=== PATIENT | male | born 1990 | race Caucasian/White ===

== ENCOUNTER 2022-07-29 19:00 | Inpatient (IN) | payer OTHER, SELFPAY ==
--- NOTE | ~2022-07-29 | CT_ITS ---
EXAMINATION: CT HEAD WITHOUT CONTRAST CLINICAL INFORMATION: New onset psychosis COMPARISON: None TECHNIQUE: Contiguous axial imaging was performed from the skull base to vertex without intravenous administration of contrast. This CT examination was performed using dose optimization techniques as appropriate, variously including the following: *Automated exposure control *Adjustment of mA and/or kV according to patient size (this includes techniques or standardized protocols for targeted exams where dose is matched to indication/reason for exam; i.e. extremities or head) *Use of iterative reconstruction technique DLP: 812 mGy-cm FINDINGS: There is no acute intra-axial, extra-axial bleed, masses or midline shift. There is no acute infarction in evolution. The lateral ventricles are symmetrical in size and configuration. The black to white matter differentiation is maintained normal. Bone windows reveal no calvarial abnormality. Bilateral paranasal sinuses and mastoid air cells are well-aerated. There is no scalp soft tissue abnormality. CT/CT head/brain wo IV con IMPRESSION: No acute intracranial process seen.
[2022-07-29 19:12] VITALS: BP 148/97; PULSE 110; RESP 18; TEMP 37; O2SAT 94; BMI 22.8
--- NOTE | 2022-07-29 19:29 | ED_ITS ---
HPI - Psych General Chief Complaint: Psychiatric Symptoms Stated Complaint: CRISIS, SECTION 12 Time Seen by Provider: 07/29/22 19:11 Source: patient and EMS Mode of arrival: EMS Limitations: no limitations History of Present Illness HPI Narrative: This is a 31-year-old male no known medical history presenting to the emergency department with complaints of paranoia, anxiety. Patient tells me he thinks he is schizophrenic and he needs an evaluation. Patient reports hearing auditory hallucinations throughout the day, voices are talking about life stressors in issues. He tells me sometimes he has visual hallucinations however very seldomly. Denies tactile hallucinations. Patient denies drugs, alcohol and t obacco. Denies suicidal and homicidal ideation. Currently not taking any medications. He denies any medical complaints. Patient is not followed by a psychiatrist or therapist and he has no known psychiatric diagnoses. He tells me his mother was concerned about him so she called 911. He was evaluated in the community by the behavioral health team is currently in inpatient bed search. Related Data Allergies Allergy/AdvReac Type Severity Reaction Status Date / Time No Known Allergies Allergy Unverified 07/09/20 17:10 [No Known Allergies*] Review of Systems Review of Systems: Constitutional : No Weight loss, No Fever, No Chills, No Fatigue, No Malaise ENT/Mouth : No sore throat, No Rhinorrhea Eyes: No Eye Pain, No Swelling, No Redness Cardiovascular : No Chest Pain, No SOB, No Dyspnea on Exertion, No Orthopnea, No Edema, No Palpitations Respiratory : No Cough, No Sputum, No Wheezing Gastrointestinal : No Nausea, No Vomiting, No Diarrhea, No Constipation, No abdominal Pain, No Hematochezia, No Melena Genitourinary : No Dysuria, No Urinary Frequency, No Hematuria, Musculoskeletal : No joint pain, No Myalgias, No Joint Swelling Skin : No Skin Lesions, No rash Neuro : No Weakness, No Numbness, No Dizziness, No Headache Psych : + Anxiety/Panic, No Depression, + paranoia, No HI/HI All other systems reviewed and are negative Yes all other systems are reviewed and are negative [facility] Past Medical History Attestation statement: The following information was validated with the patient. Source: old records reviewed and nursing notes reviewed Social History Social History Advance Directives: No Advance Directives Information Provided: Yes Physical Exam Vital Signs: Vital Signs: Last Vital Signs Temp 98.6 F 07/29/22 19:12 Pulse 110 H 07/29/22 19:12 Resp 18 07/29/22 19:12 BP 148/97 H 07/29/22 19:12 Pulse Ox 94 07/29/22 19:12 O2 Del Method 07/29/22 19:12 BMI result Body Mass Index 22.8 vss Appearance: Alert.? Oriented X3.? No acute distress.? Patient appears paranoid, and anxious upon my examination. Head: Normocephalic, atraumatic, no step-offs or deformities Eyes: Pupils equal, round and reactive to light.? CVS: Normal heart rate and rhythm.? Pulses normal.? Respiratory: No respiratory distress.? Breath sounds normal.? Abdomen: Soft and nontender.? Skin: Skin warm and dry.? Normal skin color.? Normal skin turgor.? Extremities: No lower extremity edema.? No calf ttp. 5/5 strength to bilateral upper and lower extremities Neuro: Oriented X 3.? No motor deficit.? No sensory deficit. CN 2-12 intact Course Reevaluation(s) Reevaluation #1: Patient with slight leukocytosis 14.5 however no medical complaints, no upper respiratory symptoms. Chemistry with elevated anion gap slightly, patient tolerating p.o. fluids, will hydrate. Covid negative. Time: 20:48 Reevaluation #2: Repeat CMP with no anion gap. Ethanol negative toxicology negative. At this time patient will be placed in physician observation to allow more time to be placed in an inpatient psychiatric setting. At time observation was started patient common cooperative no acute distress will continue to monitor. Time: 22:34 MDM - Psych MDM Narrative Medical decision making narrative: 193 31-year-old male presents for evaluation for paranoia, evaluated by Behavioral Health in the community currently an inpatient bed search. No known psychiatric diagnoses. Physical examination benign however, patient noted to be anxious/paranoid upon exam. Likely schizophrenia versus bipolar disorder and paranoia. Will rule out metabolic causes. Plan medical clearance and evaluation by the behavioral health team. Medical Records Attestation: I reviewed the patient's medical records. Lab Data Attestation: I reviewed the patient's lab results. Result diagrams: 07/29/22 19:26 07/29/22 21:52 Labs: Lab Results 07/29/22 07/29/22 07/29/22 Range/Units 19:20 19:26 19:26 WBC 14.5 H (4.8-10.8) X10*3/uL RBC 4.89 (4.60-5.80) X10*6/uL Hgb 15.2 (14.0-18.0) g/dl Hct 43.2 (42.0-52.0) % MCV 88.3 (80.0-98.0) fL MCH 31.1 (27.0-33.0) pg MCHC 35.2 (31.0-36.0) g/dl RDW 11.7 (11.0-16.0) % Plt Count 235 (160-400) X10*3/uL MPV 9.6 (9.4-12.4) fL Immature Gran % (Auto) 0.3 (0.0-0.4) % Neut % (Auto) 78.9 H (45-73) % Lymph % (Auto) 10.4 L (20-40) % [place] % (Auto) 10.2 (2-11) % Eos % (Auto) 0.0 (0-4) % Baso % (Auto) 0.2 (0-2) % Lymph # (Auto) 1.5 (1.2-4.9) X10*3/uL [place] # (Auto) 1.5 H (0.1-1.2) X10*3/uL Eos # (Auto) 0.0 (0.0-0.4) X10*3/uL Baso # (Auto) 0.0 (0.0-0.2) X10*3/uL Abs Immat Gran (auto) 0.05 H (0.00-0.03) X10*3/uL Absolute Neuts (auto) 11.4 H (2.0-8.3) x10*3/uL Absolute Nucleated RBC 0.000 (0.0-0.012) X10*3/uL Nucleated RBC % (auto) 0.0 (0.0-0.2) /100WBC Sodium 144 (135-145) mmol/L Potassium 4.0 (3.3-5.1) mmol/L Chloride 104 (96-108) mmol/L Carbon Dioxide 22 (22-29) mmol/L Anion Gap 22 H (12-20) BUN 18 H (9-16) mg/dL Creatinine 1.19 (0.5-1.4) mg/dL Estim Creat Clear Calc 87.3 Estimated GFR > 60 Random Glucose 104 (60-115) mg/dL Calcium 10.1 (8.4-10.2) mg/dL Total Bilirubin 0.8 (0.0-1.0) mg/dL AST 41 H (5-37) U/L ALT 20 (0-40) U/L Alkaline Phosphatase 62 (39-117) U/L Total Protein 8.0 (6.5-8.0) g/dL Albumin 5.5 H (3.5-5.0) g/dL Salicylates (15-30) mg/dL Acetaminophen (<30) mcg/mL Ethyl Alcohol mg/dL COVID-19 (ESE) Negative (Negative) COVID-19 Clin Com See Note 07/29/22 07/29/22 Range/Units 19:26 21:52 WBC (4.8-10.8) X10*3/uL RBC (4.60-5.80) X10*6/uL Hgb (14.0-18.0) g/dl Hct (42.0-52.0) % MCV (80.0-98.0) fL MCH (27.0-33.0) pg MCHC (31.0-36.0) g/dl RDW (11.0-16.0) % Plt Count (160-400) X10*3/uL MPV (9.4-12.4) fL Immature Gran % (Auto) (0.0-0.4) % Neut % (Auto) (45-73) % Lymph % (Auto) (20-40) % [place] % (Auto) (2-11) % Eos % (Auto) (0-4) % Baso % (Auto) (0-2) % Lymph # (Auto) (1.2-4.9) X10*3/uL [place] # (Auto) (0.1-1.2) X10*3/uL Eos # (Auto) (0.0-0.4) X10*3/uL Baso # (Auto) (0.0-0.2) X10*3/uL Abs Immat Gran (auto) (0.00-0.03) X10*3/uL Absolute Neuts (auto) (2.0-8.3) x10*3/uL Absolute Nucleated RBC (0.0-0.012) X10*3/uL Nucleated RBC % (auto) (0.0-0.2) /100WBC Sodium 141 (135-145) mmol/L Potassium 4.0 (3.3-5.1) mmol/L Chloride 103 (96-108) mmol/L Carbon Dioxide 23 (22-29) mmol/L Anion Gap 19 (12-20) BUN 17 H (9-16) mg/dL Creatinine 1.04 (0.5-1.4) mg/dL Estim Creat Clear Calc 99.9 Estimated GFR > 60 Random Glucose 95 (60-115) mg/dL Calcium 9.7 (8.4-10.2) mg/dL Total Bilirubin 0.8 (0.0-1.0) mg/dL AST 39 H (5-37) U/L ALT 20 (0-40) U/L Alkaline Phosphatase 59 (39-117) U/L Total Protein 7.9 (6.5-8.0) g/dL Albumin 5.3 H (3.5-5.0) g/dL Salicylates 8.1 L (15-30) mg/dL Acetaminophen < 1 (<30) mcg/mL Ethyl Alcohol < 10 mg/dL COVID-19 (ESE) (Negative) COVID-19 Clin Com Critical Care Time Critical Care Time Critical Care Time: No Discharge Plan Discharge Clinical Impression: Acute anxiety, Acute paranoia Patient Disposition: Still a Patient
[2022-07-29 19:30] LABS: MANUAL DIFF FLAG NO
[2022-07-29 19:32] LABS: Basophils Percent Auto 0.2 % (0-2); Hematocrit 43.2 % (42.0-52.0); Hemoglobin 15.2 g/dl (14.0-18.0); Imm Gran Abs Auto 0.05 X10*3/uL (0.00-0.03); Imm Gran Pct Auto 0.3 % (0.0-0.4); Lymphocytes Absolute Auto 1.5 X10*3/uL (1.2-4.9); Lymphocytes Percent Auto 10.4 % (20-40); Mean Corpuscular HGB Conc 35.2 g/dl (31.0-36.0); Mean Corpuscular Hemoglobin 31.1 pg (27.0-33.0); Mean Corpuscular Volume 88.3 fL (80.0-98.0); Mean Platelet Volume 9.6 fL (9.4-12.4); Monocytes Absolute Auto 1.5 X10*3/uL (0.1-1.2); Monocytes Percent Auto 10.2 % (2-11); Neutrophils Absolute Auto 11.4 x10*3/uL (2.0-8.3); Neutrophils Percent Auto 78.9 % (45-73); Platelet Count 235 X10*3/uL (160-400); Red Blood Count 4.89 X10*6/uL (4.60-5.80); Red Cell Distribution Width 11.7 % (11.0-16.0); White Blood Count 14.5 X10*3/uL (4.8-10.8)
[2022-07-29 19:41] LABS: COVID-19 Test Negative (Negative); IDNOW Serial# 55D5AD1C
[2022-07-29 20:00] LABS: Alanine Aminotransferase 20 U/L (0-40); Albumin Level 5.5 g/dL (3.5-5.0); Alkaline Phosphatase 62 U/L (39-117); Anion Gap 22 (12-20); Aspartate Amino Transferase 41 U/L (5-37); Bilirubin Total 0.8 mg/dL (0.0-1.0); Blood Urea Nitrogen 18 mg/dL (9-16); Calcium 10.1 mg/dL (8.4-10.2); Carbon Dioxide 22 mmol/L (22-29); Chloride 104 mmol/L (96-108); Creatinine Clr Calc Pharmacy 87.3; Estimated Glomerular Filt Rate > 60; Ethanol < 10 mg/dL; Glucose Random 104 mg/dL (60-115); Salicylate 8.1 mg/dL (15-30); Sodium 144 mmol/L (135-145)
[2022-07-29 20:18] LABS: Acetaminophen LAB < 1 mcg/mL (<30)
[2022-07-29 22:17] LABS: Alanine Aminotransferase 20 U/L (0-40); Albumin Level 5.3 g/dL (3.5-5.0); Alkaline Phosphatase 59 U/L (39-117); Anion Gap 19 (12-20); Aspartate Amino Transferase 39 U/L (5-37); Bilirubin Total 0.8 mg/dL (0.0-1.0); Blood Urea Nitrogen 17 mg/dL (9-16); Calcium 9.7 mg/dL (8.4-10.2); Carbon Dioxide 23 mmol/L (22-29); Chloride 103 mmol/L (96-108); Creatinine Clr Calc Pharmacy 99.9; Estimated Glomerular Filt Rate > 60; Glucose Random 95 mg/dL (60-115); Sodium 141 mmol/L (135-145); Total Protein 7.9 g/dL (6.5-8.0)
[2022-07-29 23:56] VITALS: BP 135/82; PULSE 103; RESP 17; TEMP 37.4; O2SAT 98
--- NOTE | 2022-07-30 06:27 | PC.NURSE ---
Patient slept through the night, no distress observed/reported, patient struggled to fall sleep, patient was assessed by Sharon in the community with disposition section 12 inpatient bed search, patient behavior non concerning at this time however thought content paranoid, thought process tangential, med rec completed/currently not on any medication, VSS, pending urine sample, will continue to monitor.
--- NOTE | 2022-07-30 07:19 | PC.NURSE ---
patient appears to remain asleep at present respirations are even and unlabored patient appears in no distress
[2022-07-30 08:11] LABS: Appearance Urine Clear; Color Urine Yellow; Glucose Urine UA 250 mg/dL (Negative); Leukocyte Esterase Urine Negative (Negative); Nitrite Urine Negative (Negative); PH 5.5 (5.0-9.0); Urine Blood Negative (Negative); Urine Ketones 15 mg/dL (Negative); Urine Protein Negative (Neg-Trace)
[2022-07-30 08:26] LABS: Amphetamine Screen Urine Not Detected (Not Detect); Barbiturates, Urine Not Detected (Not Detect); Benzodiazepines Screen Urine Not Detected (Not Detect); Cannabinoid Screen Urine Not Detected (Not Detect); Cocaine Screen Urine Not Detected (Not Detect); Fentanyl, urine Not Detected (Not Detect); Opiate Screen Urine Not Detected (Not Detect); Phencyclidine Screen Urine Not Detected (Not Detect)
--- NOTE | 2022-07-30 09:21 | PC.NURSE ---
patient reported to t/w hearing voicescoming through intercom of family being tortured, t/w told client wasnt happening that we were ruling out medical issuies as the source for his hallucinations and that client had a medicine available client told this medicine was optional. patient declined
[2022-07-30 09:35] VITALS: BP 149/95; PULSE 114; TEMP 37.1; O2SAT 98
[2022-07-30] MEDS: LORazepam 1 MG TABLET 2 MG PO (11:48)
--- NOTE | 2022-07-30 11:49 | PC.NURSE ---
pts father in to visit, talked patient into taking some ativan, dr mann was notified, order was placed and patient was given the medication.
--- NOTE | 2022-07-30 18:04 | PC.NURSE ---
pt mother at bedside - pt calm and cooperative, no new orders at this time.
[2022-07-30 18:16] VITALS: BP 144/89; PULSE 66; RESP 17; TEMP 36.7; O2SAT 99
[2022-07-31 02:02] VITALS: BP 137/87; PULSE 93; RESP 17; TEMP 36.6; O2SAT 96
--- NOTE | 2022-07-31 06:11 | PC.NURSE ---
Patient sleeping comfortable, no distress noted. Will continue to monitor.
--- NOTE | 2022-07-31 08:36 | MHC.MBSS ---
pt was awake at change of shift, showered. Now at desk in his room, no distress noted, awaiting results of bed search
[2022-07-31 16:56] LABS: COVID-19 Test Negative (Negative)
[2022-07-31 20:34] VITALS: BP 151/98; PULSE 92; RESP 18; TEMP 36.8; O2SAT 99
[2022-07-31 23:44] VITALS: BP 149/84; PULSE 84; RESP 17; TEMP 36.8; O2SAT 99
[2022-07-31] MEDS: Acetaminophen 325 MG TABLET 650 MG PO (23:49)
[2022-07-31] MEDS: LORazepam 1 MG TABLET 2 MG PO (23:53)
--- NOTE | 2022-07-31 23:57 | PC.NURSE ---
Patient reported anxiety 6/10 with headache, Ativan 2 mg po administered as ordered and Tylenol 650 mg po administered as ordered pending effect, patient currently in bed jarod, quiet, and resting, pending M3 admission, VSS, medication compliant, will continue to monitor.
--- NOTE | 2022-08-01 05:57 | PC.NURSE ---
Patient slept through the night, no distress observed/reported, behavior non concerning, coherent at surface, thought content paranoid, disposition per [facility] is section 12 inpatient bed search, medication compliant, no scheduled meds at this time, will continue to monitor.
[2022-08-01 17:26] VITALS: BP 146/98; PULSE 65; RESP 18; TEMP 36.2; O2SAT 100
[2022-08-01] MEDS: LORazepam 1 MG TABLET 2 MG PO (22:31)
[2022-08-01 23:22] VITALS: BP 139/87; PULSE 71; RESP 16; TEMP 36.6; O2SAT 99
--- NOTE | 2022-08-02 06:24 | PC.NURSE ---
Patient slept through the night, no distress observed/reported, behavior non concerning, Ativan 2 mg po administered at 2231 with + effect, thought content delusion paranoid, thought process mostly coherent, disposition per [facility] is section 12 inpatient bed search, VSS, will continued to monitor.
--- NOTE | 2022-08-02 07:31 | PC.NURSE ---
Report from Torsten HOLLEY. Pt resting quietly in bed at this time. RR reg and even, NAD. Awaiting in-patient bed.
[2022-08-02 09:04] VITALS: BP 127/86; PULSE 82; RESP 17; TEMP 36.6; O2SAT 98
[2022-08-02] MEDS: LORazepam 1 MG TABLET 2 MG PO (13:56)
--- NOTE | 2022-08-02 17:03 | HO.PSYADMNOT ---
[facility] Date of Service: 08/02/22 Chief Complaint: PSYCHOSIS Sources of Information: patient interviewed, chart reviewed and crisis/core team assessment reviewed Additional Sources of Information: mother, Kayley [phone] [facility] Subjective Notes: Burkett Warning and Conditional Voluntary Narrative: Mr. Solitario is a 31 year-old male with no prior psychiatric hx who was brought in to [facility] by parents as pt reporting hearing voices, paranoid thinking someone was after his family, calling police to report this. In the ED his utox was negative. On the unit, pt reports he is mostly in his room, house most of the time. Pt reports he quit HS and did not finish. He reports he spends fair amount playing video games. He reports he has been isolating for several years and not able to work, which he does not know exactly why. 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 He reports he has not use alcohol nor watched porn since April. He reports he started hearing voices telling him that he is a scumbag. He reports voices also telling him that they were going after his family. He reports he had difficulty falling asleep. He reports he was being monitored by someone. He suspects that he probably made, inadvertently, an inflammatory comment in one of the chats online and he thinks that instead of being confronted someone just decided to follow him. He suspects that he is victim of jeannette-location surveillance. He reports he feels safe here on the unit. He denies SI/HI. Past Psychiatric History: Inpatient: none OP: none past trials: none suicide attempts: none Medical Evaluation Reviewed: Yes [facility] Family History: mother depression Social History: Lives with parents and older brother. Did not complete HS, no children. Substance History: pt reports drinking vodka daily but not since April, Mother reports alcohol use not prominent and more sporadic. Pt denies any other substance use. Trauma History: not disclosed Diagnostics Vital Signs (24Hr): Vital Signs - 24 hr 08/01/22 17:26 08/01/22 23:22 08/02/22 09:04 Temperature 97.2 F 97.8 F 97.9 F Pulse Rate 65 71 82 Respiratory Rate 18 16 17 Blood Pressure 146/98 H 139/87 127/86 Pulse Oximetry 100 99 98 Oxygen Delivery Method Room Air Room Air Room Air BMI result Body Mass Index 22.8 Labs Results: 07/29/22 19:26 07/29/22 21:52 Imaging Radiology Impressions: ITS Impressions Chest X-Ray 07/30/22 07:33 IMPRESSION: No acute cardiopulmonary findings. Head CT 08/02/22 15:31 IMPRESSION: No acute intracranial process seen. Meds/Allergies Meds Home Medications Medication Instructions Recorded Confirmed Type No Known Home Meds 07/30/22 07/30/22 History Allergies Allergies Allergy/AdvReac Type Severity Reaction Status Date / Time No Known Allergies Allergy Unverified 07/09/20 17:10 [No Known Allergies*] Mental Status Exam Mental Status Exam Narrative: Appearance: casually groomed, fair hygiene in NAD Behavior:cooperative psychomotor: no agitation or retardation noted Speech:clear, normal rate/rhythm/volume, spontaneous Thought process:tangential at times, no loose associations Thought content:paranoia, hearing voices, concerned about what is going on with him Mood: good Affect: suspicious, guarded SI:none HI:none VH/AH:hearing different voices, telling him derogatory things. Delusions:paranoid delusions of people online following him Insight/judgment:fair x 2. Memory/cog: alert, oriented x 3. not formally tested. Assessment & Plan Assessment & Plan (1) Psychosis: Status: Acute Code(s): F29 - Unspecified psychosis not due to a substance or known physiological condition Plan Mr. Solitario is a 31 year-old male with no prior psych hx however, his ability to function for the past several years have been impaired independently of his cognitive abilities. Pt was brought in to [facility] by family as he has been reporting AH, paranoid delusions thinking that someone is going after him and his family. Pt reports hearing voices telling him that he is a scumbag and that they will harm his family which has prompted pt to call the police at night. Per mother, pt did not complete HS, he has progressively been more isolative and socially withdrawn for the past 10 year. He is mostly at home, avoids contact with family members and mostly in his room. Mother reports he used to be much more social, outgoing while in school. Mother reports is unclear as to what stopping him from being more productive in life as cognitively he is very smart. Mother denies substance use. Although pt reports drinking alcohol but has not done so since April. Pt appears to have shown mostly negative symptoms of schizophrenia with marked declined in social interactions, isolation, inability to function at higher level despite his cognitive abilities. I suspect less likely autism spectrum disorder as there was decline in social functioning around time of adolescence not evident when he was a child. His inability to function may be due to abulia in schizophrenia and not autism. This insurance writer spoke with his mother and explained proposed working dx. Pending head CT, CRP. We discussed risks, benefits and alternative treatment options. PLAN 1. Admit to M3, CV, 15 minutes checks for safety 2. Start risperidone 1mg po BID, titrate as necessary 3. OBtained collateral information from mother today. 4. Aftercare planning. Patient educated on: diagnosis and medication risk/benefits Reason for continued inpatient stay Substantial Risk for: inability to function
--- NOTE | 2022-08-02 18:02 | PC.NURSE ---
Etienne was admitted to M3 at 1450 from [facility] on CV for treatment of MDD with psychosis.? Precipitant of admission includes recent sleeplessness and new onset auditory hallucinations in the context of 6 years of isolating to home, loss of social connections and struggling with electronics addiction. He reports history of alcohol addiction with last drink in April 2022. No other substance use. He is alert, fully oriented, pleasant and cooperative with admission process. He notes that he is surprised that he feels more safe on the unit and is not experiencing trouble being around other people. Mood is depressed. Affect is anxious. Patient expresses hopefulness about treatment. Etienne reports auditory hallucinations calling him a scumbag and telling him to get a life He displays some suspiciousness related to admission assessments but voiced no delusional thought content. Thought Process is linear with some thought blocking noted. Etienne denies ideation, plan or intent to harm self or others Etienne reports appetite is good. He states his sleep is normally good but that the voices have lately disrupted his sleep He denies any current or history of medical issues and denies current physical complaint. ? He is placed on 15 minute checks for safety.
[2022-08-02] MEDS: LORazepam 1 MG TABLET PO (20:26)
[2022-08-02 20:30] VITALS: BP 140/87; PULSE 87; RESP 18; TEMP 36.6; O2SAT 99
[2022-08-02 21:18] VITALS: BMI 21.6
[2022-08-03 08:34] LABS: MANUAL DIFF FLAG NO
[2022-08-03 08:37] LABS: Basophils Percent Auto 0.4 % (0-2); Eosinophils Absolute Auto 0.1 X10*3/uL (0.0-0.4); Eosinophils Percent Auto 1.5 % (0-4); Hematocrit 44.7 % (42.0-52.0); Imm Gran Abs Auto 0.02 X10*3/uL (0.00-0.03); Imm Gran Pct Auto 0.4 % (0.0-0.4); Lymphocytes Absolute Auto 1.5 X10*3/uL (1.2-4.9); Lymphocytes Percent Auto 30.5 % (20-40); Mean Corpuscular HGB Conc 33.6 g/dl (31.0-36.0); Mean Corpuscular Hemoglobin 31.1 pg (27.0-33.0); Mean Corpuscular Volume 92.5 fL (80.0-98.0); Mean Platelet Volume 9.6 fL (9.4-12.4); Monocytes Absolute Auto 0.3 X10*3/uL (0.1-1.2); Monocytes Percent Auto 6.9 % (2-11); Neutrophils Absolute Auto 2.9 x10*3/uL (2.0-8.3); Neutrophils Percent Auto 60.3 % (45-73); Platelet Count 256 X10*3/uL (160-400); Red Blood Count 4.83 X10*6/uL (4.60-5.80); Red Cell Distribution Width 11.6 % (11.0-16.0); White Blood Count 4.8 X10*3/uL (4.8-10.8)
[2022-08-03 08:52] LABS: Estimated Average Glucose 103 mg/dL; Hemoglobin A1c % 5.2 %
[2022-08-03 09:17] LABS: Alanine Aminotransferase 25 U/L (0-40); Alkaline Phosphatase 53 U/L (39-117); Anion Gap 15 (12-20); Aspartate Amino Transferase 28 U/L (5-37); Bilirubin Total 0.6 mg/dL (0.0-1.0); Blood Urea Nitrogen 10 mg/dL (9-16); Calcium 10.1 mg/dL (8.4-10.2); Carbon Dioxide 29 mmol/L (22-29); Chloride 103 mmol/L (96-108); Cholesterol 299 mg/dL; Creatinine Clr Calc Pharmacy 106.9; Estimated Glomerular Filt Rate > 60; Glucose Fasting 89 mg/dL (60-99); HDL Cholesterol 52 mg/dL; LDL Cholesterol Calculated 232 mg/dl; Potassium 4.4 mmol/L (3.3-5.1); Sodium 143 mmol/L (135-145); Total Protein 7.4 g/dL (6.5-8.0); Triglycerides 77 mg/dL
[2022-08-03 09:19] VITALS: BP 123/79; PULSE 91; RESP 16; TEMP 36.7; O2SAT 99
[2022-08-03 09:40] LABS: Free T4 (Free Thyroxine) 1.34 ng/dL (0.71-1.85); Thyroid Stimulating Hormone 0.88 uIU/mL (0.32-4.0)
[2022-08-03 09:57] LABS: Folate 19.5 ng/mL (> or = 4.0); Vitamin B12 502 pg/mL (200-900)
--- NOTE | 2022-08-03 12:30 | P.PNPSI_ITS ---
Subjective Subjective Date of Service: 08/03/22 Reason For Visit: PSYCHOSIS Subjective Notes: Conditional Voluntary Interim History: Pt reports sleeping well. He reports worried about side effects of risperidone and therefore wanted to talk with me about it before deciding to take it. He denies SI/HI. he reports less AH/VH. After explaining potential side effects, differential dx, he agreed to take risperidone. Pt isolated as roommate positive for covid. He denies any symptoms- plan to f/u with repeat covid test in 24/hrs. Medication Compliance: Yes Side effects from medications: No Review of Systems Review of Systems Constitutional : No Weight loss, No Fever, No Chills, No Fatigue, No Malaise ENT/Mouth : No sore throat, No Rhinorrhea Eyes: No Eye Pain, No Swelling, No Redness Cardiovascular : No Chest Pain, No SOB, No Dyspnea on Exertion, No Orthopnea, No Edema, No Palpitations Respiratory : No Cough, No Sputum, No Wheezing Gastrointestinal : No Nausea, No Vomiting, No Diarrhea, No Constipation, No abdominal Pain, No Hematochezia, No Melena Genitourinary : No Dysuria, No Urinary Frequency, No Hematuria, Musculoskeletal : No joint pain, No Myalgias, No Joint Swelling Skin : No Skin Lesions, No rash Neuro : No Weakness, No Numbness, No Dizziness, No Headache Psych : + Anxiety/Panic, No Depression, + paranoia, No HI/HI All other systems reviewed and are negative Yes all other systems are reviewed and are negative Mental Status Exam Mental Status Exam Narrative: Appearance: casually groomed, fair hygiene in NAD Behavior:cooperative psychomotor: no agitation or retardation noted Speech:clear, normal rate/rhythm/volume, spontaneous Thought process:tangential at times, no loose associations Thought content:paranoia, hearing voices, concerned about what is going on with him Mood: good Affect: suspicious, guarded SI:none HI:none VH/AH:hearing different voices, telling him derogatory things. Delusions:paranoid delusions of people online following him Insight/judgment:fair x 2. Memory/cog: alert, oriented x 3. not formally tested. Diagnostics Vital Signs (24Hr): Vital Signs - 24 hr 08/03/22 18:00 Temperature 97.8 F Pulse Rate 89 Respiratory Rate 16 Blood Pressure 153/65 H Pulse Oximetry 98 Oxygen Delivery Method Room Air BMI result Body Mass Index 21.6 Labs Results: 08/03/22 08:14 08/03/22 08:14 Labs: Laboratory Results - last 48 hr 08/03/22 08/03/22 08/03/22 08:14 08:14 08:14 WBC 4.8 RBC 4.83 Hgb 15.0 Hct 44.7 MCV 92.5 MCH 31.1 MCHC 33.6 RDW 11.6 Plt Count 256 MPV 9.6 Immature Gran % (Auto) 0.4 Neut % (Auto) 60.3 Lymph % (Auto) 30.5 [place] % (Auto) 6.9 Eos % (Auto) 1.5 Baso % (Auto) 0.4 Lymph # (Auto) 1.5 [place] # (Auto) 0.3 Eos # (Auto) 0.1 Baso # (Auto) 0.0 Abs Immat Gran (auto) 0.02 Absolute Neuts (auto) 2.9 Absolute Nucleated RBC 0.000 Nucleated RBC % (auto) 0.0 Sodium 143 Potassium 4.4 Chloride 103 Carbon Dioxide 29 Anion Gap 15 BUN 10 Creatinine 0.92 Estim Creat Clear Calc 106.9 Estimated GFR > 60 Fasting Glucose 89 Estimat Average Glucose 103 Hemoglobin A1c % 5.2 Calcium 10.1 Total Bilirubin 0.6 AST 28 ALT 25 Alkaline Phosphatase 53 Total Protein 7.4 Albumin 5.0 Triglycerides 77 Cholesterol 299 LDL Cholesterol, Calc 232 HDL Cholesterol 52 Vitamin B12 Folate TSH 0.88 Free T4 1.34 COVID-19 (ESE) COVID-19 Clin Com 08/03/22 08/03/22 08:14 13:00 WBC RBC Hgb Hct MCV MCH MCHC RDW Plt Count MPV Immature Gran % (Auto) Neut % (Auto) Lymph % (Auto) [place] % (Auto) Eos % (Auto) Baso % (Auto) Lymph # (Auto) [place] # (Auto) Eos # (Auto) Baso # (Auto) Abs Immat Gran (auto) Absolute Neuts (auto) Absolute Nucleated RBC Nucleated RBC % (auto) Sodium Potassium Chloride Carbon Dioxide Anion Gap BUN Creatinine Estim Creat Clear Calc Estimated GFR Fasting Glucose Estimat Average Glucose Hemoglobin A1c % Calcium Total Bilirubin AST ALT Alkaline Phosphatase Total Protein Albumin Triglycerides Cholesterol LDL Cholesterol, Calc HDL Cholesterol Vitamin B12 502 Folate 19.5 TSH Free T4 COVID-19 (ESE) Negative COVID-19 Clin Com See Note Imaging Radiology Impressions: ITS Impressions Chest X-Ray 07/30/22 07:33 IMPRESSION: No acute cardiopulmonary findings. Head CT 08/02/22 15:31 IMPRESSION: No acute intracranial process seen. Medications Medications Current Medications Acetaminophen (Acetaminophen 325 Mg Tablet) 650 mg PO Q6H PRN PRN Reason: Headache/Pain Mild Scale (1-3) Al Hydroxide/Mg Hydroxide (Magnesium Hydrox/Alum Hydrox 30 Ml Oral.Susp) 30 ml PO Q6H PRN PRN Reason: Heartburn/Nausea Hydroxyzine HCl (Hydroxyzine Hcl 25 Mg Tablet) 25 mg PO Q6H PRN PRN Reason: Anxiety Lorazepam (Lorazepam 1 Mg Tablet) 1 mg PO Q6H PRN PRN Reason: anxiety/sleep Last Admin: 08/02/22 20:26 Dose: 1 mg Magnesium Hydroxide (Milk Of Magnesia 30 Ml Oral.Susp) 30 ml PO DAILY PRN PRN Reason: Constipation Risperidone (Risperidone 1 Mg Tablet) 1 mg PO BID BEATRIZ Last Admin: 08/04/22 09:33 Dose: 1 mg Trazodone HCl (Trazodone Hcl 100 Mg Tablet) 100 mg PO BEDTIME PRN PRN Reason: Insomnia Allergies Allergies Allergy/AdvReac Type Severity Reaction Status Date / Time No Known Allergies Allergy Unverified 07/09/20 17:10 [No Known Allergies*] Assessment & Plan Assessment & Plan (1) Psychosis: Status: Acute Code(s): F29 - Unspecified psychosis not due to a substance or known physiological condition Plan Mr. Solitario is a 31 year-old male with no prior psych hx however, his ability to function for the past several years have been impaired independently of his cognitive abilities. Pt was brought in to [facility] by family as he has been reporting AH, paranoid delusions thinking that someone is going after him and his family. Pt reports hearing voices telling him that he is a scumbag and that they will harm his family which has prompted pt to call the police at night. Per mother, pt did not complete HS, he has progressively been more isolative and socially withdrawn for the past 10 year. He is mostly at home, avoids contact with family members and mostly in his room. Mother reports he used to be much more social, outgoing while in school. Mother reports is unclear as to what stopping him from being more productive in life as cognitively he is very smart. Mother denies substance use. Although pt reports drinking alcohol but has not done so since April. Pt appears to have shown mostly negative symptoms of schizophrenia with marked declined in social interactions, isolation, inability to function at higher level despite his cognitive ab ilities. I suspect less likely autism spectrum disorder as there was decline in social functioning around time of adolescence not evident when he was a child. His inability to function may be due to abulia in schizophrenia and not autism. This technical report writer spoke with his mother and explained proposed working dx. Pending head CT, CRP. We discussed risks, benefits and alternative treatment options. PLAN 1. Admit to M3, CV, 15 minutes checks for safety 2. Start risperidone 1mg po BID, titrate as necessary 3. OBtained collateral information from mother today. 4. Aftercare planning. 08/03 continue current tx. I spent minutes with the patient and/or on the patient floor today, greater than?50% of which was spent counseling/coordinating care. Reason for contiued inpatient stay Substantial Risk for: inability to function
[2022-08-03 13:28] LABS: COVID-19 Test Negative (Negative)
[2022-08-03 18:00] VITALS: BP 153/65; PULSE 89; RESP 16; TEMP 36.6; O2SAT 98
[2022-08-03] MEDS: risperiDONE 1 MG TABLET PO (21:40)
[2022-08-04 07:00] VITALS: BMI 21.6
[2022-08-04] MEDS: risperiDONE 1 MG TABLET PO ×2 (09:33→21:26)
--- NOTE | 2022-08-04 12:32 | HO.PSYCHPN ---
Subjective Subjective Date of Service: 08/04/22 Reason For Visit: PSYCHOSIS Subjective Notes: Conditional Voluntary Interim History: Pt denies hearing voices. He reports he is no longer concern about his safety or family safety as he was when he first came to the hospital. Pt denies SI/HI. He reports no side effects with risperidone. Per nursing, no behavioral concerns. Plan to connect with services and d/c early next week. Medication Compliance: Yes Review of Systems Review of Systems Constitutional : No Weight loss, No Fever, No Chills, No Fatigue, No Malaise ENT/Mouth : No sore throat, No Rhinorrhea Eyes: No Eye Pain, No Swelling, No Redness Cardiovascular : No Chest Pain, No SOB, No Dyspnea on Exertion, No Orthopnea, No Edema, No Palpitations Respiratory : No Cough, No Sputum, No Wheezing Gastrointestinal : No Nausea, No Vomiting, No Diarrhea, No Constipation, No abdominal Pain, No Hematochezia, No Melena Genitourinary : No Dysuria, No Urinary Frequency, No Hematuria, Musculoskeletal : No joint pain, No Myalgias, No Joint Swelling Skin : No Skin Lesions, No rash Neuro : No Weakness, No Numbness, No Dizziness, No Headache Psych : + Anxiety/Panic, No Depression, + paranoia, No HI/HI All other systems reviewed and are negative Yes all other systems are reviewed and are negative Mental Status Exam Mental Status Exam Narrative: Appearance: casually groomed, fair hygiene in NAD Behavior:cooperative psychomotor: no agitation or retardation noted Speech:clear, normal rate/rhythm/volume, spontaneous Thought process:tangential at times, no loose associations Thought content:paranoia, hearing voices, concerned about what is going on with him Mood: good Affect: suspicious, guarded SI:none HI:none VH/AH:hearing different voices, telling him derogatory things. Delusions:paranoid delusions of people online following him Insight/judgment:fair x 2. Memory/cog: alert, oriented x 3. not formally tested. Diagnostics Vital Signs (24Hr): Vital Signs - 24 hr 08/03/22 18:00 Temperature 97.8 F Pulse Rate 89 Respiratory Rate 16 Blood Pressure 153/65 H Pulse Oximetry 98 Oxygen Delivery Method Room Air BMI result Body Mass Index 21.6 Labs Results: 08/03/22 08:14 08/03/22 08:14 Labs: Laboratory Results - last 48 hr 08/03/22 08/03/22 08/03/22 08:14 08:14 08:14 WBC 4.8 RBC 4.83 Hgb 15.0 Hct 44.7 MCV 92.5 MCH 31.1 MCHC 33.6 RDW 11.6 Plt Count 256 MPV 9.6 Immature Gran % (Auto) 0.4 Neut % (Auto) 60.3 Lymph % (Auto) 30.5 [place] % (Auto) 6.9 Eos % (Auto) 1.5 Baso % (Auto) 0.4 Lymph # (Auto) 1.5 [place] # (Auto) 0.3 Eos # (Auto) 0.1 Baso # (Auto) 0.0 Abs Immat Gran (auto) 0.02 Absolute Neuts (auto) 2.9 Absolute Nucleated RBC 0.000 Nucleated RBC % (auto) 0.0 Sodium 143 Potassium 4.4 Chloride 103 Carbon Dioxide 29 Anion Gap 15 BUN 10 Creatinine 0.92 Estim Creat Clear Calc 106.9 Estimated GFR > 60 Fasting Glucose 89 Estimat Average Glucose 103 Hemoglobin A1c % 5.2 Calcium 10.1 Total Bilirubin 0.6 AST 28 ALT 25 Alkaline Phosphatase 53 Total Protein 7.4 Albumin 5.0 Triglycerides 77 Cholesterol 299 LDL Cholesterol, Calc 232 HDL Cholesterol 52 Vitamin B12 Folate TSH 0.88 Free T4 1.34 COVID-19 (ESE) COVID-19 [facility] Com 08/03/22 08/03/22 08:14 13:00 WBC RBC Hgb Hct MCV MCH MCHC RDW Plt Count MPV Immature Gran % (Auto) Neut % (Auto) Lymph % (Auto) [place] % (Auto) Eos % (Auto) Baso % (Auto) Lymph # (Auto) [place] # (Auto) Eos # (Auto) Baso # (Auto) Abs Immat Gran (auto) Absolute Neuts (auto) Absolute Nucleated RBC Nucleated RBC % (auto) Sodium Potassium Chloride Carbon Dioxide Anion Gap BUN Creatinine Estim Creat Clear Calc Estimated GFR Fasting Glucose Estimat Average Glucose Hemoglobin A1c % Calcium Total Bilirubin AST ALT Alkaline Phosphatase Total Protein Albumin Triglycerides Cholesterol LDL Cholesterol, Calc HDL Cholesterol Vitamin B12 502 Folate 19.5 TSH Free T4 COVID-19 (ESE) Negative COVID-19 Clin Com See Note Imaging Radiology Impressions: ITS Impressions Chest X-Ray 07/30/22 07:33 IMPRESSION: No acute cardiopulmonary findings. Head CT 08/02/22 15:31 IMPRESSION: No acute intracranial process seen. Medications Medications Current Medications Acetaminophen (Acetaminophen 325 Mg Tablet) 650 mg PO Q6H PRN PRN Reason: Headache/Pain Mild Scale (1-3) Al Hydroxide/Mg Hydroxide (Magnesium Hydrox/Alum Hydrox 30 Ml Oral.Susp) 30 ml PO Q6H PRN PRN Reason: Heartburn/Nausea Hydroxyzine HCl (Hydroxyzine Hcl 25 Mg Tablet) 25 mg PO Q6H PRN PRN Reason: Anxiety Lorazepam (Lorazepam 1 Mg Tablet) 1 mg PO Q6H PRN PRN Reason: anxiety/sleep Last Admin: 08/02/22 20:26 Dose: 1 mg Magnesium Hydroxide (Milk Of Magnesia 30 Ml Oral.Susp) 30 ml PO DAILY PRN PRN Reason: Constipation Risperidone (Risperidone 1 Mg Tablet) 1 mg PO BID BEATRIZ Last Admin: 08/04/22 09:33 Dose: 1 mg Trazodone HCl (Trazodone Hcl 100 Mg Tablet) 100 mg PO BEDTIME PRN PRN Reason: Insomnia Allergies Allergies Allergy/AdvReac Type Severity Reaction Status Date / Time No Known Allergies Allergy Unverified 07/09/20 17:10 [No Known Allergies*] Assessment & Plan Assessment & Plan (1) Psychosis: Status: Acute Code(s): F29 - Unspecified psychosis not due to a substance or known physiological condition Plan Mr. Solitario is a 31 year-old male with no prior psych hx however, his ability to function for the past several years have been impaired independently of his cognitive abilities. Pt was brought in to [facility] by family as he has been reporting AH, paranoid delusions thinking that someone is going after him and his family. Pt reports hearing voices telling him that he is a scumbag and that they will harm his family which has prompted pt to call the police at night. Per mother, pt did not complete HS, he has progressively been more isolative and socially withdrawn for the past 10 year. He is mostly at home, avoids contact with family members and mostly in his room. Mother reports he used to be much more social, outgoing while in school. Mother reports is unclear as to what stopping him from being more productive in life as cognitively he is very smart. Mother denies substance use. Although pt reports drinking alcohol but has not done so since April. Pt appears to have shown mostly negative symptoms of schizophrenia with marked declined in social interactions, isolation, inability to function at higher level despite his cognitive abilities. I suspect less likely autism spectrum disorder as there was decline in social functioning around time of adolescence not evident when he was a child. His inability to function may be due to abulia in schizophrenia and not autism. This screen writer spoke with his mother and explained proposed working dx. Pending head CT, CRP. We discussed risks, benefits and alternative treatment options. PLAN 1. Admit to M3, CV, 15 minutes checks for safety 2. Start risperidone 1mg po BID, titrate as necessary 3. OBtained collateral information from mother today. 4. Aftercare planning. 08/03 continue current tx. 08/04 continue current tx. I spent minutes with the patient and/or on the patient floor today, greater than?50% of which was spent counseling/coordinating care. Reason for contiued inpatient stay Substantial Risk for: inability to function
[2022-08-04 14:56] LABS: CRP High Sensitivity 0.9 mg/L
[2022-08-04 15:30] VITALS: BP 133/91; PULSE 108; RESP 18; TEMP 36.7; O2SAT 99
[2022-08-04 21:15] VITALS: BP 152/97; PULSE 93; RESP 18; TEMP 36.8; O2SAT 94
[2022-08-05 06:00] VITALS: BP 128/78; PULSE 81; RESP 18; TEMP 36.7; O2SAT 98
--- NOTE | 2022-08-05 09:44 | P.PNPSI_ITS ---
Subjective Subjective Date of Service: 08/05/22 Reason For Visit: PSYCHOSIS Subjective Notes: Conditional Voluntary Interim History: Pt continues to denied hearing voices. He reports he is no longer concern about his safety or family safety as he was when he first came to the hospital. Pt denies SI/HI. Pt reports he is journaling and hopes he continues OP treatment. I suspect some residual delusional content continues as voices telling him to be more productive. He reports no side effects with risperidone. Feels that risperidone is helpful, mind more clear. Per nursing, no behavioral concerns. Plan to connect with services and d/c early next week. pt positive for covid today- he denies any symptoms so far. Medication Compliance: Yes Side effects from medications: No Attending Groups: No Review of Systems Review of Systems Constitutional : No Weight loss, No Fever, No Chills, No Fatigue, No Malaise ENT/Mouth : No sore throat, No Rhinorrhea Eyes: No Eye Pain, No Swelling, No Redness Cardiovascular : No Chest Pain, No SOB, No Dyspnea on Exertion, No Orthopnea, No Edema, No Palpitations Respiratory : No Cough, No Sputum, No Wheezing Gastrointestinal : No Nausea, No Vomiting, No Diarrhea, No Constipation, No abdominal Pain, No Hematochezia, No Melena Genitourinary : No Dysuria, No Urinary Frequency, No Hematuria, Musculoskeletal : No joint pain, No Myalgias, No Joint Swelling Skin : No Skin Lesions, No rash Neuro : No Weakness, No Numbness, No Dizziness, No Headache Psych : + Anxiety/Panic, No Depression, + paranoia, No HI/HI All other systems reviewed and are negative Yes all other systems are reviewed and are negative Mental Status Exam Mental Status Exam Narrative: Appearance: casually groomed, fair hygiene in NAD Behavior:cooperative psychomotor: no agitation or retardation noted Speech:clear, normal rate/rhythm/volume, spontaneous Thought process:tangential at times, no loose associations Thought content:paranoia, hearing voices, concerned about what is going on with him Mood: good Affect: suspicious, guarded SI:none HI:none VH/AH:hearing different voices, telling him derogatory things. Delusions:paranoid delusions of people online following him Insight/judgment:fair x 2. Memory/cog: alert, oriented x 3. not formally tested. Diagnostics Vital Signs (24Hr): Vital Signs - 24 hr 08/05/22 22:55 08/06/22 01:00 08/06/22 08:50 Temperature 101.1 F H 97.2 F 98.0 F Pulse Rate 138 H 119 H 100 Respiratory Rate 18 18 18 Blood Pressure 138/82 134/84 118/70 Pulse Oximetry 97 98 Oxygen Delivery Method Room Air Room Air BMI result Body Mass Index 21.6 Labs Results: 08/03/22 08:14 08/03/22 08:14 Labs: Laboratory Results - last 48 hr 08/02/22 08/05/22 15:39 11:15 C-React Prot High Sens 0.9 COVID-19 (ESE) Positive A COVID-19 Clin Com See Note Imaging Radiology Impressions: ITS Impressions Chest X-Ray 07/30/22 07:33 IMPRESSION: No acute cardiopulmonary findings. Head CT 08/02/22 15:31 IMPRESSION: No acute intracranial process seen. Medications Medications Current Medications Acetaminophen (Acetaminophen 325 Mg Tablet) 650 mg PO Q6H PRN PRN Reason: Headache/Pain Mild Scale (1-3) Last Admin: 08/05/22 22:55 Dose: 650 mg Al Hydroxide/Mg Hydroxide (Magnesium Hydrox/Alum Hydrox 30 Ml Oral.Susp) 30 ml PO Q6H PRN PRN Reason: Heartburn/Nausea Hydroxyzine HCl (Hydroxyzine Hcl 25 Mg Tablet) 25 mg PO Q6H PRN PRN Reason: Anxiety Lorazepam (Lorazepam 1 Mg Tablet) 1 mg PO Q6H PRN PRN Reason: anxiety/sleep Last Admin: 08/02/22 20:26 Dose: 1 mg Magnesium Hydroxide (Milk Of Magnesia 30 Ml Oral.Susp) 30 ml PO DAILY PRN PRN Reason: Constipation Risperidone (Risperidone 1 Mg Tablet) 1 mg PO BID BEATRIZ Last Admin: 08/06/22 08:21 Dose: 1 mg Trazodone HCl (Trazodone Hcl 100 Mg Tablet) 100 mg PO BEDTIME PRN PRN Reason: Insomnia Allergies Allergies Allergy/AdvReac Type Severity Reaction Status Date / Time No Known Allergies Allergy Unverified 07/09/20 17:10 [No Known Allergies*] Assessment & Plan Assessment & Plan (1) Psychosis: Status: Acute Code(s): F29 - Unspecified psychosis not due to a substance or known physiological cond ition Plan Mr. Solitario is a 31 year-old male with no prior psych hx however, his ability to function for the past several years have been impaired independently of his cognitive abilities. Pt was brought in to [facility] by family as he has been reporting AH, paranoid delusions thinking that someone is going after him and his family. Pt reports hearing voices telling him that he is a scumbag and that they will harm his family which has prompted pt to call the police at night. Per mother, pt did not complete HS, he has progressively been more isolative and socially withdrawn for the past 10 year. He is mostly at home, avoids contact with family members and mostly in his room. Mother reports he used to be much more social, outgoing while in school. Mother reports is unclear as to what stopping him from being more productive in life as cognitively he is very smart. Mother denies substance use. Although pt reports drinking alcohol but has not done so since April. Pt appears to have shown mostly negative symptoms of schizophrenia with marked declined in social interactions, isolation, inability to function at higher level despite his cognitive abilities. I suspect less likely autism spectrum disorder as there was decline in social functioning around time of adolescence not evident when he was a child. His inability to function may be due to abulia in schizophrenia and not autism. This technical writer and editor spoke with his mother and explained proposed working dx. Shahram nding head CT, CRP. We discussed risks, benefits and alternative treatment options. PLAN 1. Admit to M3, CV, 15 minutes checks for safety 2. Start risperidone 1mg po BID, titrate as necessary 3. OBtained collateral information from mother today. 4. Aftercare planning. 08/03 continue current tx. 08/04 continue current tx. 08/05 increase risperidone to 1mg po BID. I spent minutes with the patient and/or on the patient floor today, greater than?50% of which was spent counseling/coordinating care. Reason for contiued inpatient stay Substantial Risk for: inability to function
[2022-08-05] MEDS: risperiDONE 1 MG TABLET PO (10:44)
[2022-08-05 11:41] LABS: IDNOW Serial# 16C4AD1C
[2022-08-05 11:42] LABS: COVID-19 Test Positive (Negative)
[2022-08-05 22:55] VITALS: BP 138/82; PULSE 138; RESP 18; TEMP 38.4; O2SAT 97
[2022-08-05] MEDS: Acetaminophen 325 MG TABLET 650 MG PO (22:55)
[2022-08-06 01:00] VITALS: BP 134/84; PULSE 119; RESP 18; TEMP 36.2; O2SAT 98
--- NOTE | 2022-08-06 01:30 | PC.NURSE ---
Pt had an elevated temp of 101.1, HR was 138. call circuit worker notified and tylenol given with recheck ordered in 2 hrs. VS reccked at 0100 and temp was now 97.2 with a HR of 119. Will continue to monitor.
[2022-08-06] MEDS: risperiDONE 1 MG TABLET PO ×2 (08:21→21:19)
[2022-08-06 08:50] VITALS: BP 118/70; PULSE 100; RESP 18; TEMP 36.7
[2022-08-06] MEDS: Acetaminophen 325 MG TABLET 650 MG PO ×2 (12:28→21:19)
[2022-08-06 12:35] VITALS: BP 123/76; PULSE 104; TEMP 37.5; O2SAT 99
[2022-08-06 13:58] VITALS: TEMP 37.3
--- NOTE | 2022-08-06 15:30 | HO.PSYCHPN ---
Subjective Subjective Date of Service: 08/06/22 Reason For Visit: PSYCHOSIS Interim History: calm, cooperative. in COVID isolation. states he is experiencing no AVH presently. plans to be compliant with risperidone, only didn't take it bcse he was febrile last night and concerned there would be some kind of risk to taking it when feverish. reports he took it this morning. per staff, febrile last sekou, reduced with tylenol. no pulmonary Sx. refused risperidone last evening. anx/dep 12/02. planning to [place] on monday. Mental Status Exam Mental Status Exam Narrative: Appearance: casually groomed, fair hygiene in NAD Behavior:cooperative psychomotor: no agitation or retardation noted Speech:clear, normal rate/rhythm/volume, spontaneous Thought process:tangential at times, no loose associations Thought content: denies AVH Mood: good Affect: suspicious, guarded SI:none expressed HI:none expressed VH/AH:denies Delusions: none expressed Insight/judgment:fair x 2. Memory/cog: alert, oriented x 3. not formally tested. Diagnostics Vital Signs (24Hr): Vital Signs - 24 hr 08/05/22 22:55 08/06/22 01:00 08/06/22 08:50 Temperature 101.1 F H 97.2 F 98.0 F Pulse Rate 138 H 119 H 100 Respiratory Rate 18 18 18 Blood Pressure 138/82 134/84 118/70 Pulse Oximetry 97 98 Oxygen Delivery Method Room Air Room Air 08/06/22 12:35 08/06/22 13:58 Temperature 99.5 F 99.2 F Pulse Rate 104 H Respiratory Rate Blood Pressure 123/76 Pulse Oximetry 99 Oxygen Delivery Method Room Air BMI result Body Mass Index 21.6 Labs Results: 08/03/22 08:14 08/03/22 08:14 Labs: Laboratory Results - last 48 hr 08/05/22 11:15 COVID-19 (ESE) Positive A COVID-19 Clin Com See Note Imaging Radiology Impressions: ITS Impressions Chest X-Ray 07/30/22 07:33 IMPRESSION: No acute cardiopulmonary findings. Head CT 08/02/22 15:31 IMPRESSION: No acute intracranial process seen. Medications Medications Current Medications Acetaminophen (Acetaminophen 325 Mg Tablet) 650 mg PO Q6H PRN PRN Reason: Headache/Pain Mild Scale (1-3) Last Admin: 08/06/22 12:28 Dose: 650 mg Al Hydroxide/Mg Hydroxide (Magnesium Hydrox/Alum Hydrox 30 Ml Oral.Susp) 30 ml PO Q6H PRN PRN Reason: Heartburn/Nausea Hydroxyzine HCl (Hydroxyzine Hcl 25 Mg Tablet) 25 mg PO Q6H PRN PRN Reason: Anxiety Lorazepam (Lorazepam 1 Mg Tablet) 1 mg PO Q6H PRN PRN Reason: anxiety/sleep Last Admin: 08/02/22 20:26 Dose: 1 mg Magnesium Hydroxide (Milk Of Magnesia 30 Ml Oral.Susp) 30 ml PO DAILY PRN PRN Reason: Constipation Risperidone (Risperidone 1 Mg Tablet) 1 mg PO BID BEATRIZ Last Admin: 08/06/22 08:21 Dose: 1 mg Trazodone HCl (Trazodone Hcl 100 Mg Tablet) 100 mg PO BEDTIME PRN PRN Reason: Insomnia Allergies Allergies Allergy/AdvReac Type Severity Reaction Status Date / Time No Known Allergies Allergy Unverified 07/09/20 17:10 [No Known Allergies*] Assessment & Plan Assessment & Plan (1) Psychosis: Status: Acute Code(s): F29 - Unspecified psychosis not due to a substance or known physiological condition Plan Mr. Solitario is a 31 year-old male with no prior psych hx however, his ability to function for the past several years have been impaired independently of his cognitive abilities. Pt was brought in to [facility] [place] [facility] by family as he has been reporting AH, paranoid delusions thinking that someone is going after him and his family. Pt reports hearing voices telling him that he is a scumbag and that they will harm his family which has prompted pt to call the police at night. Per mother, pt did not complete HS, he has progressively been more isolative and socially withdrawn for the past 10 year. He is mostly at home, avoids contact with family members and mostly in his room. Mother reports he used to be much more social, outgoing while in school. Mother reports is unclear as to what stopping him from being more productive in life as cognitively he is very smart. Mother denies substance use. Although pt reports drinking alcohol but has not done so since April. Pt appears to have shown mostly negative symptoms of schizophrenia with marked declined in social interactions, isolation, inability to function at higher level despite his cognitive abilities. I suspect less likely autism spectrum disorder as there was decline in social functioning around time of adolescence not evident when he was a child. His inability to function may be due to abulia in schizophrenia and not autism. This selling underwriter spoke with his mother and explained proposed working dx. Pending head CT, CRP. We discussed risks, benefits and alternative treatment options. PLAN 1. Admit to M3, CV, 15 minutes checks for safety 2. Start risperidone 1mg po BID, titrate as necessary 3. OBtained collateral information from mother today. 4. Aftercare planning. 08/03 continue current tx. 08/04 continue current tx. 08/05 increase risperidone to 1mg po BID. 08/06: denies AVH entirely, somewhat unbelievably. continue current mgmt. states he plans to discharge monday. I spent ___15___ minutes with the patient and/or on the patient floor today, greater than?50% of which was spent counseling/coordinating care. Reason for contiued inpatient stay Substantial Risk for: inability to function and rapid decompensation
[2022-08-06 21:19] VITALS: BP 139/83; PULSE 113; RESP 20; TEMP 39.4; O2SAT 97
[2022-08-06 23:35] VITALS: BP 129/76; PULSE 88; RESP 18; TEMP 36.6; O2SAT 99
--- NOTE | 2022-08-06 23:36 | PC.NURSE ---
Addendum entered by Aurora Maddox RN 08/07/22 00:03: Upon re-assessment at 2335. Pt presented drenched in sweat. VS were bp of 129/73, 99% Sp02, HR of 88 and temp was now 97.9. Pt denies any sx but chills, sweating and fever. Will continue to monitor. Original Note: Pt had an elevated temp of 102.9 @ 2119. HR was 113. call taker notified, Tylenol 650 mg given and will recheck in 2 hours.
[2022-08-07 08:30] VITALS: BP 126/86; PULSE 115; RESP 18; TEMP 36.8; O2SAT 98
[2022-08-07] MEDS: risperiDONE 1 MG TABLET PO ×2 (08:38→21:08)
[2022-08-07 12:10] VITALS: BP 127/82; PULSE 106; RESP 18; TEMP 36.8; O2SAT 99
[2022-08-07 14:24] LABS: COVID-19 Test Positive (Negative); IDNOW Serial# 16C4AD1C
--- NOTE | 2022-08-07 14:46 | HO.PSYCHPN ---
Subjective Subjective Date of Service: 08/07/22 Reason For Visit: PSYCHOSIS Interim History: denies AVH, feeling better physically. asking about cutting risperidone dosing from 1 BID to 0.5 BID and was advised against. per staff, COVID POS, temp 102.9 last noc, came down to 97.9 with tylenol. sweats. thinks sweats are from risperidone. drinking lots of fluids. med-compliant. Mental Status Exam Mental Status Exam Narrative: Appearance: casually groomed, fair hygiene in NAD Behavior:cooperative psychomotor: no agitation or retardation noted Speech:clear, normal rate/rhythm/volume, spontaneous Thought process:tangential at times, no loose associations Thought content: denies AVH Mood: good Affect: suspicious, guarded SI:none expressed HI:none expressed VH/AH:denies Delusions: none expressed Insight/judgment:fair x 2. Memory/cog: alert, oriented x 3. not formally tested. Diagnostics Vital Signs (24Hr): Vital Signs - 24 hr 08/06/22 21:19 08/06/22 23:35 08/07/22 08:30 Temperature 102.9 F H 97.9 F 98.3 F Pulse Rate 113 H 88 115 H Respiratory Rate 20 18 18 Blood Pressure 139/83 129/76 126/86 Pulse Oximetry 97 99 98 Oxygen Delivery Method Room Air Room Air Room Air 08/07/22 12:10 Temperature 98.3 F Pulse Rate 106 H Respiratory Rate 18 Blood Pressure 127/82 Pulse Oximetry 99 Oxygen Delivery Method Room Air BMI result Body Mass Index 21.6 Labs Results: 08/03/22 08:14 08/03/22 08:14 Labs: Laboratory Results - last 48 hr 08/07/22 14:00 COVID-19 (ESE) Positive A COVID-19 Clin Com See Note Imaging Radiology Impressions: ITS Impressions Chest X-Ray 07/30/22 07:33 IMPRESSION: No acute cardiopulmonary findings. Head CT 08/02/22 15:31 IMPRESSION: No acute intracranial process seen. Medications Medications Current Medications Acetaminophen (Acetaminophen 325 Mg Tablet) 650 mg PO Q6H PRN PRN Reason: Headache/Pain Mild Scale (1-3) Last Admin: 08/06/22 21:19 Dose: 650 mg Al Hydroxide/Mg Hydroxide (Magnesium Hydrox/Alum Hydrox 30 Ml Oral.Susp) 30 ml PO Q6H PRN PRN Reason: Heartburn/Nausea Hydroxyzine HCl (Hydroxyzine Hcl 25 Mg Tablet) 25 mg PO Q6H PRN PRN Reason: Anxiety Lorazepam (Lorazepam 1 Mg Tablet) 1 mg PO Q6H PRN PRN Reason: anxiety/sleep Last Admin: 08/02/22 20:26 Dose: 1 mg Magnesium Hydroxide (Milk Of Magnesia 30 Ml Oral.Susp) 30 ml PO DAILY PRN PRN Reason: Constipation Risperidone (Risperidone 1 Mg Tablet) 1 mg PO BID BEATRIZ Last Admin: 08/07/22 08:38 Dose: 1 mg Trazodone HCl (Trazodone Hcl 100 Mg Tablet) 100 mg PO BEDTIME PRN PRN Reason: Insomnia Allergies Allergies Allergy/AdvReac Type Severity Reaction Status Date / Time No Known Allergies Allergy Unverified 07/09/20 17:10 [No Known Allergies*] Assessment & Plan Assessment & Plan (1) Psychosis: Status: Acute Code(s): F29 - Unspecified psychosis not due to a substance or known physiological condition Plan Mr. Solitario is a 31 year-old male with no prior psych hx however, his ability to function for the past several years have been impaired independently of his cognitive abilities. Pt was brought in to [facility] by family as he has been reporting AH, paranoid delusions thinking that someone is going after him and his family. Pt reports hearing voices telling him that he is a scumbag and that they will harm his family which has prompted pt to call the police at night. Per mother, pt did not complete HS, he has progressively been more isolative and socially withdrawn for the past 10 year. He is mostly at home, avoids contact with family members and mostly in his room. Mother reports he used to be much more social, outgoing while in school. Mother reports is unclear as to what stopping him from being more productive in life as cognitively he is very smart. Mother denies substance use. Although pt reports drinking alcohol but has not done so since April. Pt appears to have shown mostly negative symptoms of schizophrenia with marked declined in social interactions, isolation, inability to function at higher level despite his cognitive abilities. I suspect less likely autism spectrum disorder as there was decline in social functioning around time of adolescence not evident when he was a child. His inability to function may be due to abulia in schizophrenia and not autism. This justowriter operator spoke with his mother and explained proposed working dx. Pending head CT, CRP. We discussed risks, benefits and alternative treatment options. PLAN 1. Admit to M3, CV, 15 minutes checks for safety 2. Start risperidone 1mg po BID, titrate as necessary 3. OBtained collateral information from mother today. 4. Aftercare planning. 08/03 continue current tx. 08/04 continue current tx. 08/05 increase risperidone to 1mg po BID. 08/06: denies AVH entirely, somewhat unbelievably. continue current mgmt. states he plans to discharge monday. 08/07: denies all AVH. continue current mgmt. I spent ___20___ minutes with the patient and/or on the patient floor today, greater than?50% of which was spent counseling/coordinating care. Reason for contiued inpatient stay Substantial Risk for: inability to function and rapid decompensation
[2022-08-07 20:45] VITALS: BP 131/95; PULSE 101; RESP 18; TEMP 37.7; O2SAT 99
[2022-08-07] MEDS: Acetaminophen 325 MG TABLET 650 MG PO (21:08)
[2022-08-08] MEDS: risperiDONE 1 MG TABLET PO ×2 (08:25→20:12)
[2022-08-08 08:30] VITALS: BP 142/99; PULSE 103; RESP 17; TEMP 36.3; O2SAT 98
--- NOTE | 2022-08-08 09:16 | P.PNPSI_ITS ---
Subjective Subjective Date of Service: 08/08/22 Reason For Visit: PSYCHOSIS Subjective Notes: Conditional Voluntary Interim History: Pt worried that chills and fever caused by risperidone. Pt reassured these are symptoms of covid. Pt somewhat anxious about continuing the medications. Again reassured most likely risperidone not one causing fogginess or chills. Pt denies SI/HI. He denies VH/AH. No overt delusional content noted or reported. Pt reports he is writing in journal, new goals for his life, plans to complete GED. Per nursing, no behavioral concerns. O2sat >97. No s/s of respiratory distress. Medication Compliance: Yes Side effects from medications: No Review of Systems Review of Systems Constitutional : No Weight loss, No Fever, No Chills, No Fatigue, No Malaise ENT/Mouth : No sore throat, No Rhinorrhea Eyes: No Eye Pain, No Swelling, No Redness Cardiovascular : No Chest Pain, No SOB, No Dyspnea on Exertion, No Orthopnea, No Edema, No Palpitations Respiratory : No Cough, No Sputum, No Wheezing Gastrointestinal : No Nausea, No Vomiting, No Diarrhea, No Constipation, No abdominal Pain, No Hematochezia, No Melena Genitourinary : No Dysuria, No Urinary Frequency, No Hematuria, Musculoskeletal : No joint pain, No Myalgias, No Joint Swelling Skin : No Skin Lesions, No rash Neuro : No Weakness, No Numbness, No Dizziness, No Headache Psych : + Anxiety/Panic, No Depression, + paranoia, No HI/HI All other systems reviewed and are negative Yes all other systems are reviewed and are negative Mental Status Exam Mental Status Exam Narrative: Appearance: casually groomed, fair hygiene in NAD Behavior:cooperative psychomotor: no agitation or retardation noted Speech:clear, normal rate/rhythm/volume, spontaneous Thought process:tangential at times, no loose associations Thought content: denies AVH Mood: good Affect: suspicious, guarded SI:none expressed HI:none expressed VH/AH:denies Delusions: none expressed Insight/judgment:fair x 2. Memory/cog: alert, oriented x 3. not formally tested. Diagnostics Vital Signs (24Hr): Vital Signs - 24 hr 08/08/22 19:58 Temperature 98.1 F Pulse Rate 90 Respiratory Rate 16 Blood Pressure 135/96 H Pulse Oximetry 98 Oxygen Delivery Method Room Air BMI result Body Mass Index 21.6 Labs Results: 08/03/22 08:14 08/03/22 08:14 Labs: Laboratory Results - last 48 hr 08/07/22 14:00 COVID-19 (ESE) Positive A COVID-19 Clin Com See Note Imaging Radiology Impressions: ITS Impressions Chest X-Ray 07/30/22 07:33 IMPRESSION: No acute cardiopulmonary findings. Head CT 08/02/22 15:31 IMPRESSION: No acute intracranial process seen. Medications Medications Current Medications Acetaminophen (Acetaminophen 325 Mg Tablet) 650 mg PO Q6H PRN PRN Reason: Headache/Pain Mild Scale (1-3) Last Admin: 08/07/22 21:08 Dose: 650 mg Al Hydroxide/Mg Hydroxide (Magnesium Hydrox/Alum Hydrox 30 Ml Oral.Susp) 30 ml PO Q6H PRN PRN Reason: Heartburn/Nausea Hydroxyzine HCl (Hydroxyzine Hcl 25 Mg Tablet) 25 mg PO Q6H PRN PRN Reason: Anxiety Last Admin: 08/08/22 18:47 Dose: 25 mg Magnesium Hydroxide (Milk Of Magnesia 30 Ml Oral.Susp) 30 ml PO DAILY PRN PRN Reason: Constipation Risperidone (Risperidone 1 Mg Tablet) 1 mg PO BID BEATRIZ Last Admin: 08/08/22 20:12 Dose: 1 mg Trazodone HCl (Trazodone Hcl 100 Mg Tablet) 100 mg PO BEDTIME PRN PRN Reason: Insomnia Allergies Allergies Allergy/AdvReac Type Severity Reaction Status Date / Time No Known Allergies Allergy Unverified 07/09/20 17:10 [No Known Allergies*] Assessment & Plan Assessment & Plan (1) Psychosis: Status: Acute Code(s): F29 - Unspecified psychosis not due to a substance or known physiological condition Plan Mr. Solitario is a 31 year-old male with no prior psych hx however, his ability to function for the past several years have been impaired independently of his cog nitive abilities. Pt was brought in to [facility] by family as he has been reporting AH, paranoid delusions thinking that someone is going after him and his family. Pt reports hearing voices telling him that he is a scumbag and that they will harm his family which has prompted pt to call the police at night. Per mother, pt did not complete HS, he has progressively been more isolative and socially wi thdrawn for the past 10 year. He is mostly at home, avoids contact with family members and mostly in his room. Mother reports he used to be much more social, outgoing while in school. Mother reports is unclear as to what stopping him from being more productive in life as cognitively he is very smart. Mother denies substance use. Although pt reports drinking alcohol but has not done so since April. Pt appears to have shown mostly negative symptoms of schizophrenia with marked declined in social interactions, isolation, inability to function at higher level despite his cognitive abilities. I suspect less likely autism spectrum disorder as there was decline in social functioning around time of a dolescence not evident when he was a child. His inability to function may be due to abulia in schizophrenia and not autism. This senior underwriter spoke with his mother and explained proposed working dx. Pending head CT, CRP. We discussed risks, benefits and alternative treatment options. PLAN 1. Admit to M3, CV, 15 minutes checks for safety 2. Start risperidone 1mg po BID, titrate as necessary 3. OBtained collateral information from mother today. 4. Aftercare planning. 08/03 continue current tx. 08/04 continue current tx. 08/05 increase risperidone to 1mg po BID. 08/06: denies AVH entirely, somewhat unbelievably. continue current mgmt. states he plans to discharge monday. 08/07: denies all AVH. continue current mgmt. 08/08 continue current tx. d/c tomorrow. I spent minutes with the patient and/or on the patient floor today, greater than?50% of which was spent counseling/coordinating care. Reason for contiued inpatient stay Substantial Risk for: stable for discharge
[2022-08-08] MEDS: hydrOXYzine HCL 25 MG TABLET PO (18:47)
[2022-08-08 19:58] VITALS: BP 135/96; PULSE 90; RESP 16; TEMP 36.7; O2SAT 98
[2022-08-08] MEDS: risperiDONE 0.5 MG TABLET PO (21:44)
--- NOTE | 2022-08-09 09:30 | P.DS_ITS ---
DS: Providers Provider Date of Service: 08/09/22 Date of admission: 08/02/22 11:49 Primary care physician: None Physician DS: Diagnosis Discharge Diagnosis (1) Psychosis: Status: Acute DS: Medications Discharge Medications Home Medications: Previous Rx's Medication Instructions Recorded acetaminophen 500 mg capsule 500 mg PO Q6H PRN Headache/Pain 08/09/22 Mild Scale (1-3) #30 caps hydroxyzine HCl 25 mg tablet 25 mg PO Q6H PRN Anxiety #30 tabs 08/09/22 risperidone 1 mg tablet 1 mg PO DAILY #30 tabs 08/09/22 risperidone 2 mg tablet 2 mg PO BEDTIME #30 tabs 08/09/22 trazodone 50 mg tablet 50 mg PO BEDTIME PRN Insomnia #30 08/09/22 tabs Mental Status Exam Mental Status Exam Narrative: Appearance: casually groomed, fair hygiene in NAD Behavior:cooperative psychomotor: no agitation or retardation noted Speech:clear, normal rate/rhythm/volume, spontaneous Thought process:tangential at times, no loose associations Thought content: denies AVH Mood: good Affect: suspicious, guarded SI:none expressed HI:none expressed VH/AH:denies Delusions: none expressed Insight/judgment:fair x 2. Memory/cog: alert, oriented x 3. not formally tested. Data Data Completed and Pending Completed studies during hospitalization [Text1]: 08/02/22 08/03/22 08/03/22 15:39 08:14 08:14 WBC 4.8 RBC 4.83 Hgb 15.0 Hct 44.7 MCV 92.5 MCH 31.1 MCHC 33.6 RDW 11.6 Plt Count 256 MPV 9.6 Immature Gran % (Auto) 0.4 Neut % (Auto) 60.3 Lymph % (Auto) 30.5 [place] % (Auto) 6.9 Eos % (Auto) 1.5 Baso % (Auto) 0.4 Lymph # (Auto) 1.5 [place] # (Auto) 0.3 Eos # (Auto) 0.1 Baso # (Auto) 0.0 Abs Immat Gran (auto) 0.02 Absolute Neuts (auto) 2.9 Absolute Nucleated RBC 0.000 Nucleated RBC % (auto) 0.0 Sodium 143 Potassium 4.4 Chloride 103 Carbon Dioxide 29 Anion Gap 15 BUN 10 Creatinine 0.92 Estim Creat Clear Calc 106.9 Estimated GFR > 60 Fasting Glucose 89 Estimat Average Glucose Hemoglobin A1c % Calcium 10.1 Total Bilirubin 0.6 AST 28 ALT 25 Alkaline Phosphatase 53 C-React Prot High Sens 0.9 Total Protein 7.4 Albumin 5.0 Triglycerides 77 Cholesterol 299 LDL Cholesterol, Calc 232 HDL Cholesterol 52 Vitamin B12 Folate TSH 0.88 Free T4 1.34 COVID-19 (ESE) COVID-19 Clin Com 08/03/22 08/03/22 08/03/22 08:14 08:14 13:00 WBC RBC Hgb Hct MCV MCH MCHC RDW Plt Count MPV Immature Gran % (Auto) Neut % (Auto) Lymph % (Auto) [place] % (Auto) Eos % (Auto) Baso % (Auto) Lymph # (Auto) [place] # (Auto) Eos # (Auto) Baso # (Auto) Abs Immat Gran (auto) Absolute Neuts (auto) Absolute Nucleated RBC Nucleated RBC % (auto) Sodium Potassium Chloride Carbon Dioxide Anion Gap BUN Creatinine Estim Creat Clear Calc Estimated GFR Fasting Glucose Estimat Average Glucose 103 Hemoglobin A1c % 5.2 Calcium Total Bilirubin AST ALT Alkaline Phosphatase C-React Prot High Sens Total Protein Albumin Triglycerides Cholesterol LDL Cholesterol, Calc HDL Cholesterol Vitamin B12 502 Folate 19.5 TSH Free T4 COVID-19 (ESE) Negative COVID-19 Clin Com See Note 08/05/22 08/07/22 11:15 14:00 WBC RBC Hgb Hct MCV MCH MCHC RDW Plt Count MPV Immature Gran % (Auto) Neut % (Auto) Lymph % (Auto) [place] % (Auto) Eos % (Auto) Baso % (Auto) Lymph # (Auto) [place] # (Auto) Eos # (Auto) Baso # (Auto) Abs Immat Gran (auto) Absolute Neuts (auto) Absolute Nucleated RBC Nucleated RBC % (auto) Sodium Potassium Chloride Carbon Dioxide Anion Gap BUN Creatinine Estim Creat Clear Calc Estimated GFR Fasting Glucose Estimat Average Glucose Hemoglobin A1c % Calcium Total Bilirubin AST ALT Alkaline Phosphatase C-React Prot High Sens Total Protein Albumin Triglycerides Cholesterol LDL Cholesterol, Calc HDL Cholesterol Vitamin B12 Folate TSH Free T4 COVID-19 (ESE) Positive A Positive A COVID-19 Clin Com See Note See Note Imaging Diagnostic Imaging Impressions Chest X-Ray 07/30/22 07:33 IMPRESSION: No acute cardiopulmonary findings. Head CT 08/02/22 15:31 IMPRESSION: No acute intracranial process seen. DS: Summary Hospital Course Hospital Course: HPI: Subjective Notes: Burkett Warning and Conditional Voluntary Narrative: Mr. Solitario is a 31 year-old male with no prior psychiatric hx who was brought in to [facility] ED by parents as pt reporting hearing voices, paranoid thinking someone was after his family, calling police to report this. In the ED his utox was negative. On the unit, pt reports he is mostly in his room, house most of the time. Pt reports he quit HS and did not finish. He reports he spends fair amount playing video games. He reports he has been isolating for several years and not able to work, which he does not know exactly why. 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 He reports he has not use alcohol nor watched porn since April. He reports he started hearing voices telling him that he is a scumbag. He reports voices also telling him that they were going after his family. He reports he had difficulty falling asleep. He reports he was being monitored by someone. He suspects that he probably made, inadvertently, an inflammatory comment in one of the chats online and he thinks that instead of being confronted someone just decided to follow him. He suspects that he is victim of jeannette- location surveillance. He reports he feels safe here on the unit. He denies SI/HI. Past Psychiatric History: Inpatient: none OP: none past trials: none suicide attempts: none Medical Evaluation Reviewed: Yes HOSPITAL COURSE On the unit, Mr. Solitario presented with paranoid delusions, AH thinking that someone was after him and his family. After discussing risks, benefits and alternative treatment options, he agreed to start risperidone. His affect gradually presented as less fearful, less hypervigilant. He also presented as less thought blocking. He denied suicidal or homicidal ideation. Collateral information was gathered from family, it appears pt has had marked declined in ability to function, socially withdrawn, significant decline in ability to function despite his cognitive abilities to now paranoid delusions and auditory hallucinations. At time of discharge, pt presented with less paranoid delusions, denied AH. No SI/HI. Increase insight into psychiatric symptoms and need to continue OP psych tx. There were no incidences of disruptive behaviors nor use of restraints. Parents in agreement with discharge- no safety concerns voiced and they agreed that pt appeared in much improved condition. Status at Discharge Cognitive/behavioral status at discharge: Pt with brighter, less hypervigilant and fearful affect secondary to paranoid delusions. No SI/HI. No overt AH/VH. No signs of aggression towards self or others. Functional status at discharge: independent ambulation Overall status at discharge: patient is progressing back to baseline Time Spent with Patient Time attestation: Total time spent providing and/or coordinating discharge services: Discharge Plan Discharge Anticipated Discharge Date/Time: 08/09/22 09:22 Patient Disposition: Home Health Service Discharge Diagnosis: Psychosis, r/o Schizopreniform Referrals: Cliff Logan (Therapist) [Other] - 08/12/22 2:00 pm (In office.) Carlita Mead (Psychiatrist) [Other] - 09/08/22 2:00 pm (In office) Carlita Mead (Psychiatrist) [Other] - 10/06/22 1:00 pm (Telehealth.) Angie Mancuso MD [Physician] - 1 Week [facility] [Physician] - 1 Week Discharge Medications: New acetaminophen 500 mg capsule 500 mg PO Q6H PRN (Reason: Headache/Pain Mild Scale (1-3)) Qty: 30 0RF hydroxyzine HCl 25 mg Tablet 25 mg PO Q6H PRN (Reason: Anxiety) Qty: 30 0RF trazodone 50 mg tablet 50 mg PO BEDTIME PRN (Reason: Insomnia) Qty: 30 0RF risperidone 1 mg Tablet 1 mg PO DAILY Qty: 30 0RF risperidone 2 mg tablet 2 mg PO BEDTIME Qty: 30 0RF Discharge Orders: Discharge Order (Routine); Ordered 08/09/22 Ordered By: Flaquita Logan Diet: Regular diet Activity on Discharge: As tolerated Stand Alone Forms: Patient Portal Discharge page, Community Support Care Plan Goals: 1. Maintain mood 2. No SI/HI 3. Less AH/VH, less paranoia. Health Concerns: Follow up with PCP Plan of Treatment: 1. Take medications as prescribed. 2. Go to nearest ED or call 911 in event of emergency Assessment: Pt with brighter, less paranoid, less AH/VH. More organized behavior and speech. No SI/HI. No signs of aggression towards self or others. In agreement to continue OP psych tx. Discharge Date/Time: 08/09/22 10:45
[2022-08-09 09:35] VITALS: BP 147/83; PULSE 103; RESP 17; TEMP 36; O2SAT 99
[2022-08-09] MEDS: risperiDONE 1 MG TABLET PO (09:45)
== END 2022-08-09 10:45 | disposition home health service (06) | DRG 751 ==
LOC: HO.ED 07-31 12:25 → HO.PADLT16 08-02 14:21
PROVIDERS: Emergency Medicine; Physician Assistant; Admitting Provider Psychiatry & Neurology Psychiatry; Emergency Provider Emergency Medicine; Visit Provider Social Worker
DX: F29 Unspecified psychosis not due to a substance or known physiological condition (principal); U07.1 COVID-19; F41.9 Anxiety disorder, unspecified; Z79.899 Other long term (current) drug therapy
CPT/HCPCS: 36415; 70450; 71045; 80053; 80061; 80143; 80179; 80307; 81003; 82077; 82607; 82746; 83036; 84439; 84443; 85025; 86141; 87635; 99285